=== PATIENT | female | born 1945 | race Caucasian/White ===

== ENCOUNTER → 2018-02-10 | Outpatient (CLI) | payer OTHER ==
[~2018-02-10] MED LIST: APOA1CAP PO; ASPI81TA28 PO; CALC500C70 PO; CHOL20007 PO; DIPH-437 PO; IRBE-41 PO; MISC1CAP66 PO; MISCCAP80 PO; MULT1CAP52 PO; VITA1TAB4 PO
--- NOTE | 2018-02-10 10:20 | DIAGNOSTIC IMAGING REPORT ---
CHEST 2 VIEWS ROUTINE CLINICAL HISTORY: Preoperative chest COMPARISON STUDY: No previous studies for comparison. FINDINGS: The heart is mildly enlarged. There is no failure. There is no focal pulmonary consolidation. There are no pleural effusions.[ IMPRESSION: Mild cardiomegaly. No acute findings. Electronically signed by: Raj Thomas M.D. 02/10/2018 10:18 AM Dictated Date/Time: 02/10/2018 10:17 AM
[2018-02-10 10:32] LABS: BASO % 0.3 %; BASO ABS # 0.02 K/uL (0-0.2); EOS % 1.6 %; EOS ABS # 0.11 K/uL (0-0.5); HEMATOCRIT 44.6 % (37-47); HEMOGLOBIN 15.1 g/dL (12.0-16.0); LYMPH ABS # 2.46 K/uL (1.2-3.4); MEAN CELL VOLUME 95.7 fL (80-100); MEAN CORPUSCULAR HEMOGLOBIN 32.4 pg (25-34); MEAN CORPUSCULAR HGB CONC 33.9 g/dl (32-36); MEAN PLATELET VOLUME 10.2 fL (7.4-10.4); MONO % 8.1 %; MONO ABS # 0.57 K/uL (0.11-0.59); NEUT ABS # 3.86 K/uL (1.4-6.5); PLATELET COUNT 178 K/uL (130-400); WHITE BLOOD COUNT 7.02 K/uL (4.8-10.8)
[2018-02-10 10:39] LABS: ALBUMIN 3.8 gm/dl (3.4-5.0); BLOOD UREA NITROGEN 11 mg/dl (7-18); CALCIUM 9.5 mg/dl (8.5-10.1); CARBON DIOXIDE 27 mmol/L (21-32); CREATININE 0.71 mg/dl (0.60-1.20); GLUCOSE 103 mg/dl (70-99); POTASSIUM 3.7 mmol/L (3.5-5.1); PTT PATIENT 24.7 SECONDS (21.0-31.0); SODIUM 141 mmol/L (136-145)
[2018-02-10 11:18] LABS: HEMOGLOBIN A1C 5.6 % (4.5-5.6)
== END | disposition home or self-care (01) ==
LOC: C.CPL 09:07
PROVIDERS: ATTEND Orthopaedic Surgery
DX: Z01.818 Encounter for other preprocedural examination (principal)